=== PATIENT | male | born 1995 | race Asian ===

== ENCOUNTER 2016-08-23 16:04 | Emergency (ER) | payer OTHER ==
[~2016-08-23] VITALS: Ht 170.2 cm; Wt 120.2 kg
[~2016-08-23 16:04] MED LIST: ATEN25TA21 PO; TENORETIC50 MG PO
[2016-08-23 18:52] VITALS: BP 182/80; TEMP 100
== END 2016-08-23 18:50 | disposition home or self-care (01) ==
LOC: ED 16:04
DX: J11.1 Influenza due to unidentified influenza virus with other respiratory manifestations (principal)
CPT/HCPCS: 87081; 87804; 87880; 99283

== ENCOUNTER 2016-09-17 18:53 | Emergency (ER) | payer OTHER ==
[~2016-09-17] VITALS: Ht 170.2 cm; Wt 122.5 kg
[2016-09-17 20:02] VITALS: BP 170/98; TEMP 99.8
== END 2016-09-17 20:03 | disposition home or self-care (01) ==
LOC: ED 18:53
DX: J32.0 Chronic maxillary sinusitis (principal); J32.2 Chronic ethmoidal sinusitis
CPT/HCPCS: 99282

== ENCOUNTER 2016-12-17 00:49 | Emergency (ER) | payer OTHER ==
[~2016-12-17] VITALS: Ht 170.2 cm; Wt 122.5 kg
[2016-12-17 01:56] VITALS: BP 170/88; TEMP 98.4
== END 2016-12-17 02:00 | disposition home or self-care (01) ==
LOC: ED 00:49
DX: J20.9 Acute bronchitis, unspecified (principal); J01.90 Acute sinusitis, unspecified; J30.9 Allergic rhinitis, unspecified
CPT/HCPCS: 96372; 99282; J0696

== ENCOUNTER 2017-01-15 23:46 | Emergency (ER) | payer OTHER ==
[~2017-01-15] VITALS: Ht 170.2 cm; Wt 122.5 kg
[2017-01-16] MEDS ORDERED: ALBU90AE13 INH (00:08)
[2017-01-16 01:29] VITALS: BP 171/91; TEMP 98.7
== END 2017-01-16 01:37 | disposition home or self-care (01) ==
LOC: ED 23:46
DX: J45.909 Unspecified asthma, uncomplicated (principal); R07.89 Other chest pain
CPT/HCPCS: 94664; 94760; 99283

== ENCOUNTER 2017-01-26 11:26 | Emergency (ER) | payer OTHER ==
[~2017-01-26] VITALS: Ht 170.2 cm; Wt 122.5 kg
[~2017-01-26 11:26] MED LIST changes: +ALBU90AE13 INH
[2017-01-26 11:41] VITALS: TEMP 98.6
[2017-01-26 12:54] LABS: PLATELET COUNT 373 K/uL (142-355)
[2017-01-26 12:55] LABS: POTASSIUM 3.7 mmol/L (3.6-5.2); SODIUM 140 mmol/L (136-145)
[2017-01-26 15:13] VITALS: BP 157/96
== END 2017-01-26 15:18 | disposition home or self-care (01) ==
LOC: ED 11:26
PROVIDERS: Emergency Medicine
DX: J18.9 Pneumonia, unspecified organism (principal); I10 Essential (primary) hypertension; R00.0 Tachycardia, unspecified
CPT/HCPCS: 36415; 80053; 80307; 81000; 82550; 84484; 85027; 93005; 99284; G0479

== ENCOUNTER 2017-03-04 10:03 | Emergency (ER) | payer OTHER ==
[~2017-03-04] VITALS: Ht 200.7 cm; Wt 122.5 kg
[2017-03-04] MEDS ORDERED: CLONIDINE0.2 MG/24 (10:25)
[2017-03-04 10:55] LABS: PLATELET COUNT 449 K/uL (142-355)
[2017-03-04 12:26] VITALS: BP 154/88; TEMP 98.8
== END 2017-03-04 12:29 | disposition home or self-care (01) ==
LOC: ED 10:03
DX: J45.909 Unspecified asthma, uncomplicated (principal); E66.09 Other obesity due to excess calories
CPT/HCPCS: 36415; 85027; 85651; 99283

== ENCOUNTER 2017-03-09 01:23 | Inpatient (IN) | payer OTHER ==
[2017-03-09] VITALS (10 sets, daily range): BP systolic 14–180; BP diastolic 82–121; TEMP 97.8–101.8; Ht 170.2 cm; Wt 122.5 kg
[~2017-03-09] VITALS: Ht 170.2 cm; Wt 122.5 kg
[~2017-03-09 01:23] MED LIST changes: +CLONIDINE0.2 MG/24
[2017-03-09 02:20] LABS: PLATELET COUNT 454 K/uL (142-355)
[2017-03-09 02:53] LABS: POTASSIUM 3.1 mmol/L (3.6-5.2); SODIUM 139 mmol/L (136-145)
[2017-03-09 17:02] LABS: PLATELET COUNT 483 K/uL (142-355)
[2017-03-09 17:07] LABS: POTASSIUM 3.3 mmol/L (3.6-5.2); SODIUM 139 mmol/L (136-145)
== END 2017-03-09 19:00 | disposition short-term general hospital (02) | DRG 189 ==
LOC: ED 01:23 → MED/SURG 03:00 → ED 03:11 → MED/SURG 03:50 → ICU 16:45
PROVIDERS: ADMIT Family Medicine
DX: J96.01 Acute respiratory failure with hypoxia (principal); J18.8 Other pneumonia, unspecified organism; J81.1 Chronic pulmonary edema; E87.6 Hypokalemia; J45.998 Other asthma; I16.0 Hypertensive urgency; R00.0 Tachycardia, unspecified; I51.7 Cardiomegaly
CPT/HCPCS: 36415; 36600; 80053; 82550; 82553; 82805; 83605; 83880; 84484; 85027; 85379; 85651; 86703; 87040; 87070; 87205; 93005; 94640; 94664; 94760; 96365; 96366; 96372; 96375; 99284; G0432; J0456; J0696; J1450; J1650; J1885; J1940; J2270; J2405; J2930; J3490

== ENCOUNTER 2017-05-05 23:16 | Emergency (ER) | payer OTHER ==
[~2017-05-05] VITALS: Ht 170.2 cm; Wt 112.0 kg
[2017-05-06 00:17] LABS: PLATELET COUNT 362 K/uL (142-355)
[2017-05-06 00:54] LABS: POTASSIUM 3.6 mmol/L (3.6-5.2); SODIUM 138 mmol/L (136-145)
[2017-05-06 01:36] VITALS: BP 138/91; TEMP 98.6
== END 2017-05-06 01:39 | disposition home or self-care (01) ==
LOC: ED 23:16
DX: I10 Essential (primary) hypertension (principal); I51.7 Cardiomegaly; I50.9 Heart failure, unspecified
CPT/HCPCS: 36415; 74022; 80053; 82150; 83690; 85027; 99283

== ENCOUNTER 2017-05-19 03:53 | Outpatient (CLI) | payer OTHER ==
[2017-05-19] MEDS ORDERED: LISI5TAB10 PO (04:48)
[2017-05-19] MEDS ORDERED: FURO20TA67 PO (04:48)
== END 2017-05-19 03:58 | disposition short-term general hospital (02) ==
LOC: AMB 03:53
DX: R06.09 Other forms of dyspnea (principal)
CPT/HCPCS: A0425; A0429

== ENCOUNTER 2017-05-19 11:31 | Outpatient (CLI) | payer OTHER ==
[~2017-05-19 11:31] MED LIST changes: +FURO20TA67 PO; +LISI5TAB10 PO
== END 2017-05-19 12:01 | disposition short-term general hospital (02) ==
LOC: AMB 11:31
DX: I42.9 Cardiomyopathy, unspecified (principal); I50.9 Heart failure, unspecified; J18.0 Bronchopneumonia, unspecified organism; R68.89 Other general symptoms and signs; E87.3 Alkalosis; J96.91 Respiratory failure, unspecified with hypoxia; R00.0 Tachycardia, unspecified; I45.81 Long QT syndrome
CPT/HCPCS: A0425; A0427

== ENCOUNTER 2017-08-07 10:47 | Outpatient (CLI) | payer OTHER | END 2017-08-07 20:01 | disposition home or self-care (01) | LOC: RAD 10:47 | DX: I50.9 Heart failure, unspecified (principal); I42.8 Other cardiomyopathies; I10 Essential (primary) hypertension ==

== ENCOUNTER 2017-09-10 12:16 | Emergency (ER) | payer OTHER ==
[~2017-09-10] VITALS: Ht 170.2 cm; Wt 109.8 kg
[2017-09-10 13:30] LABS: PLATELET COUNT 432 K/uL (142-355)
[2017-09-10 13:34] LABS: POTASSIUM 3.8 mmol/L (3.6-5.2)
[2017-09-10 14:00] VITALS: TEMP 98
[2017-09-10 15:56] VITALS: BP 133/92
== END 2017-09-10 16:05 | disposition home or self-care (01) ==
LOC: ED 12:16
PROVIDERS: Family Medicine
DX: I10 Essential (primary) hypertension (principal)
CPT/HCPCS: 36415; 80048; 83880; 84484; 85027; 93005; 96374; 96375; 96376; 99284; J1885; J1940; J2405

== ENCOUNTER 2017-10-09 19:18 | Emergency (ER) | payer OTHER ==
[~2017-10-09] VITALS: Ht 170.2 cm; Wt 110.2 kg
[2017-10-09 21:39] LABS: PLATELET COUNT 405 K/uL (142-355)
[2017-10-09 21:41] LABS: POTASSIUM 3.5 mmol/L (3.6-5.2)
[2017-10-09 22:19] VITALS: BP 123/75; TEMP 98.9
== END 2017-10-09 22:19 | disposition home or self-care (01) ==
LOC: ED 19:18
DX: K52.89 Other specified noninfective gastroenteritis and colitis (principal)
CPT/HCPCS: 36415; 74022; 80053; 81000; 85027; 96361; 96365; 96374; 99284; J2405; J7120

== ENCOUNTER 2017-10-11 13:43 | Inpatient (IN) | payer OTHER ==
[2017-10-11] VITALS (8 sets, daily range): BP systolic 123–149; BP diastolic 72–115; TEMP 99.3–99.4; Ht 170.2 cm; Wt 109.4 kg
[~2017-10-11] VITALS: Ht 170.2 cm; Wt 109.4 kg
--- NOTE | 2017-10-11 13:47 | NUR ---
PT TO PCU1 DIRECT ADMIT FROM DR BREWER OFFICE.ASSISTED TO BED. PTON 2LO2 PER NC.
--- NOTE | 2017-10-11 14:10 | NUR ---
LABS DRAWN & IV STARTED 20 G L FA X 1 STICK PER JUNE ALCANTARA RN.
--- NOTE | 2017-10-11 14:30 | NUR ---
EKG DONE PER RT. PT SITTING UP PROPPING OVER BSD RESTING.
--- NOTE | 2017-10-11 14:46 | NUR ---
[facility]A CALLED,STILL WORKING ON ABED,WILL BE ABOUT 2 HRS BEFORE BED AVAILABLE.
[2017-10-11 14:53] LABS: PLATELET COUNT 414 K/uL (142-355)
[2017-10-11 14:59] LABS: POTASSIUM 5.1 mmol/L (3.6-5.2)
--- NOTE | 2017-10-11 15:02 | NUR ---
PT TO XRAY PER WC.
--- NOTE | 2017-10-11 15:18 | NUR ---
LAB IN TO DRAW BLOOD CULTURES. PT'S FAMILY AT BS.
--- NOTE | 2017-10-11 16:15 | NUR ---
RECEIVED CALL FROM [facility] IN [place], [place] WITH ROOM ASSIGNMENT FOR PATIENT AND NUMBER TO CALL REPORT TO.
--- NOTE | 2017-10-11 16:56 | NUR ---
EMS NOTIFIED OF NEED FOR TRANSPORT TO [facility].
--- NOTE | 2017-10-11 16:56 | NUR ---
REPORT CALLED TO ELLIE THIBODEAUX RN U [facility].
--- NOTE | 2017-10-11 17:55 | NUR ---
DR BACA IN TO SEE PT. EMS CALLED,WILL BE 4 HRS BEFORE PT CAN BE TRANSFERRED.
--- NOTE | 2017-10-11 18:41 | NUR ---
PT SITTING UP ON SIDE OF BED TALKING WITH FAMILY.
== END 2017-10-11 19:39 | disposition short-term general hospital (02) | DRG 293 ==
LOC: ICU 13:43
PROVIDERS: ADMIT Family Medicine
DX: I50.9 Heart failure, unspecified (principal); I42.9 Cardiomyopathy, unspecified; R06.09 Other forms of dyspnea; E86.0 Dehydration; R11.2 Nausea with vomiting, unspecified; I10 Essential (primary) hypertension; R05 Cough
CPT/HCPCS: 36415; 36600; 80053; 82550; 82553; 82805; 83605; 83880; 84484; 85027; 85379; 87040; 93005; J1940

== ENCOUNTER 2018-01-27 12:02 | Emergency (ER) | payer OTHER ==
[~2018-01-27] VITALS: Ht 170.2 cm; Wt 108.9 kg
[2018-01-27 12:10] VITALS: BP 151/94; TEMP 98.1
== END 2018-01-27 13:00 | disposition home or self-care (01) ==
LOC: ED 12:02
DX: K04.7 Periapical abscess without sinus (principal); S02.5XXA Fracture of tooth (traumatic), initial encounter for closed fracture
CPT/HCPCS: 99281

== ENCOUNTER 2018-04-03 14:07 | Emergency (ER) | payer OTHER ==
[~2018-04-03] VITALS: Ht 170.2 cm; Wt 108.9 kg
[2018-04-03] MEDS ORDERED: FURO40TA93 PO (15:02)
[2018-04-03] MEDS ORDERED: CARV6.25 PO (15:02)
[2018-04-03 15:41] LABS: PLATELET COUNT 400 K/uL (142-355)
[2018-04-03 16:01] LABS: POTASSIUM 3.8 mmol/L (3.6-5.2)
[2018-04-03 17:00] VITALS: TEMP 98.2
[2018-04-03 18:39] VITALS: BP 126/101
== END 2018-04-03 18:45 | disposition short-term general hospital (02) ==
LOC: ED 14:07
PROVIDERS: Emergency Medicine
DX: J18.9 Pneumonia, unspecified organism (principal); R68.89 Other general symptoms and signs; R00.0 Tachycardia, unspecified
CPT/HCPCS: 36415; 80053; 82550; 82553; 84484; 85027; 93005; 99285

== ENCOUNTER 2018-04-03 18:48 | Outpatient (CLI) | payer OTHER ==
[~2018-04-03 18:48] MED LIST changes: +CARV6.25 PO; +FURO40TA93 PO
== END 2018-04-03 19:59 | disposition short-term general hospital (02) ==
LOC: AMB 18:48
DX: J18.9 Pneumonia, unspecified organism (principal); R68.89 Other general symptoms and signs; R00.0 Tachycardia, unspecified
CPT/HCPCS: A0425; A0429

== ENCOUNTER 2018-04-22 09:19 | Outpatient (CLI) | payer OTHER ==
[2018-04-22] MEDS ORDERED: FURO20TA67 PO (09:48)
[2018-04-22] MEDS ORDERED: CARV25TA PO (09:48)
== END 2018-04-22 09:31 | disposition short-term general hospital (02) ==
LOC: AMB 09:19
DX: R07.89 Other chest pain (principal)
CPT/HCPCS: A0425; A0427

== ENCOUNTER 2018-04-22 09:38 | Emergency (ER) | payer OTHER ==
[~2018-04-22] VITALS: Ht 170.2 cm; Wt 108.9 kg
[2018-04-22] MEDS ORDERED: FURO20TA67 PO (09:48)
[2018-04-22] MEDS ORDERED: CARV25TA PO (09:48)
[2018-04-22 10:01] LABS: PLATELET COUNT 561 K/uL (142-355)
[2018-04-22 10:03] LABS: POTASSIUM 4.2 mmol/L (3.6-5.2)
[2018-04-22 11:30] VITALS: BP 134/88; TEMP 97.5
== END 2018-04-22 11:30 | disposition short-term general hospital (02) ==
LOC: ED 09:38
DX: I21.19 ST elevation (STEMI) myocardial infarction involving other coronary artery of inferior wall (principal)
CPT/HCPCS: 80053; 80307; 81000; 82550; 82553; 84484; 85027; 86318; 93005; 96365; 96375; 99285; J2270; J3490

== ENCOUNTER 2018-04-22 11:43 | Outpatient (CLI) | payer OTHER ==
[~2018-04-22 11:43] MED LIST changes: +CARV25TA PO
== END 2018-04-22 12:09 | disposition short-term general hospital (02) ==
LOC: AMB 11:43
DX: I21.19 ST elevation (STEMI) myocardial infarction involving other coronary artery of inferior wall (principal)
CPT/HCPCS: A0425; A0427

== ENCOUNTER 2018-06-02 14:48 | Emergency (ER) | payer OTHER ==
[~2018-06-02] VITALS: Ht 170.2 cm; Wt 108.9 kg
[2018-06-02] MEDS ORDERED: XARELTO20 MG PO (15:16)
[2018-06-02 16:08] LABS: PLATELET COUNT 298 K/uL (142-355)
[2018-06-02 16:16] LABS: POTASSIUM 3.4 mmol/L (3.6-5.2)
[2018-06-02 20:30] VITALS: BP 142/82; TEMP 98.1
== END 2018-06-02 20:35 | disposition short-term general hospital (02) ==
LOC: ED 14:48
PROVIDERS: Family Medicine
DX: R07.89 Other chest pain (principal); R05 Cough; R68.89 Other general symptoms and signs; R00.0 Tachycardia, unspecified
CPT/HCPCS: 36415; 80053; 81000; 83880; 84484; 85027; 93005; 99285

== ENCOUNTER 2018-06-02 20:44 | Outpatient (CLI) | payer OTHER ==
[~2018-06-02 20:44] MED LIST changes: +XARELTO20 MG PO
== END 2018-06-02 21:58 | disposition short-term general hospital (02) ==
LOC: AMB 20:44
DX: R07.89 Other chest pain (principal); R05 Cough; R68.89 Other general symptoms and signs; R00.0 Tachycardia, unspecified
CPT/HCPCS: A0425; A0427

== ENCOUNTER 2018-06-28 06:14 | Emergency (ER) | payer OTHER ==
[~2018-06-28] VITALS: Ht 170.2 cm; Wt 108.9 kg
[2018-06-28 06:24] VITALS: TEMP 98.1
[2018-06-28 08:10] LABS: PLATELET COUNT 450 K/uL (142-355)
[2018-06-28 08:14] LABS: POTASSIUM 3.1 mmol/L (3.6-5.2)
[2018-06-28 10:25] VITALS: BP 133/84
== END 2018-06-28 10:26 | disposition home or self-care (01) ==
LOC: ED 06:14
PROVIDERS: Internal Medicine
DX: A08.4 Viral intestinal infection, unspecified (principal)
CPT/HCPCS: 36415; 80053; 82150; 83690; 85027; 96374; 96375; 99284; J2405

== ENCOUNTER 2018-06-29 11:16 | Emergency (ER) | payer OTHER ==
[~2018-06-29] VITALS: Ht 170.2 cm; Wt 108.9 kg
[2018-06-29 16:25] VITALS: BP 114/107; TEMP 98.2
== END 2018-06-29 16:25 | disposition home or self-care (01) ==
LOC: ED 11:16
DX: K21.9 Gastro-esophageal reflux disease without esophagitis (principal); R10.13 Epigastric pain
CPT/HCPCS: 96360; 96374; 99284; J2405; Q9963

== ENCOUNTER 2018-07-15 11:01 | Emergency (ER) | payer OTHER ==
[~2018-07-15] VITALS: Ht 170.2 cm; Wt 108.9 kg
[2018-07-15 11:41] LABS: PLATELET COUNT 365 K/uL (142-355)
[2018-07-15 11:45] LABS: POTASSIUM 3.1 mmol/L (3.6-5.2)
[2018-07-15 15:10] VITALS: BP 142/89; TEMP 98
== END 2018-07-15 15:10 | disposition short-term general hospital (02) ==
LOC: ED 11:01
PROVIDERS: Emergency Medicine
DX: R79.89 Other specified abnormal findings of blood chemistry (principal); B96.81 Helicobacter pylori [H. pylori] as the cause of diseases classified elsewhere; R00.0 Tachycardia, unspecified
CPT/HCPCS: 80053; 82150; 82550; 83690; 83880; 84484; 85027; 86318; 93005; 96374; 96375; 99284; J2405; J3490

== ENCOUNTER 2018-07-23 11:59 | Emergency (ER) | payer OTHER ==
[~2018-07-23] VITALS: Ht 170.2 cm; Wt 108.9 kg
[2018-07-23 13:50] LABS: POTASSIUM 3.6 mmol/L (3.6-5.2)
[2018-07-23 14:02] LABS: PLATELET COUNT 555 K/uL (142-355)
[2018-07-23 19:29] VITALS: BP 1140/78; TEMP 98.1
== END 2018-07-23 19:30 | disposition home or self-care (01) ==
LOC: ED 11:59
PROVIDERS: Family Medicine
DX: K29.70 Gastritis, unspecified, without bleeding (principal); R11.0 Nausea
CPT/HCPCS: 36415; 74022; 80053; 81000; 85027; 99283

== ENCOUNTER 2018-08-08 16:40 | Emergency (ER) | payer OTHER ==
[~2018-08-08] VITALS: Ht 170.2 cm; Wt 99.8 kg
[2018-08-08 18:35] LABS: POTASSIUM 3.6 mmol/L (3.6-5.2)
[2018-08-08 19:12] LABS: PLATELET COUNT 348 K/uL (142-355)
[2018-08-08 19:25] VITALS: BP 121/83; TEMP 98
== END 2018-08-08 19:25 | disposition home or self-care (01) ==
LOC: ED 16:40
PROVIDERS: Emergency Medicine
DX: I50.9 Heart failure, unspecified (principal); R79.89 Other specified abnormal findings of blood chemistry; R00.0 Tachycardia, unspecified
CPT/HCPCS: 36415; 80053; 82150; 82550; 83690; 83880; 84484; 85027; 85610; 85730; 93005; 96374; 99284; J1940

== ENCOUNTER 2018-08-26 17:08 | Emergency (ER) | payer OTHER ==
[~2018-08-26] VITALS: Ht 170.2 cm; Wt 89.4 kg
[2018-08-26] MEDS ORDERED: DEXL60CA4 PO (17:44)
[2018-08-26] MEDS ORDERED: CARV6.25 PO (17:45)
[2018-08-26] MEDS ORDERED: ACID REDUCER150 MG PO (17:45)
[2018-08-26 18:25] LABS: PLATELET COUNT 525 K/uL (142-355)
[2018-08-26 18:43] LABS: POTASSIUM 4.4 mmol/L (3.6-5.2)
[2018-08-26 23:37] LABS: PLATELET COUNT 525 K/uL (142-355)
[2018-08-27 00:44] VITALS: BP 112/77; TEMP 97.5
== END 2018-08-27 00:44 ==
LOC: ED 17:08
PROVIDERS: Emergency Medicine
PROC: 0T9B70Z Drainage of Bladder with Drainage Device, Via Natural or Artificial Opening (ICD-10-PCS; principal; 2018-08-26)
PROC: 0BH17EZ Insertion of Endotracheal Airway into Trachea, Via Natural or Artificial Opening (ICD-10-PCS; 2018-08-26)
PROC: 5A1935Z Respiratory Ventilation, Less than 24 Consecutive Hours (ICD-10-PCS; 2018-08-26)
DX: I50.9 Heart failure, unspecified (principal); R00.0 Tachycardia, unspecified
CPT/HCPCS: 31500; 36415; 51702; 80053; 80307; 81000; 82150; 82272; 82550; 83690; 83735; 83880; 84484; 85027; 94002; 96361; 96365; 96374; 96375; 96376; 99285; J0171; J0330; J1200; J1940; J2060; J2250; J2270; J2405; J3490

== ENCOUNTER 2018-08-27 00:48 | Outpatient (CLI) | payer OTHER ==
[~2018-08-27 00:48] MED LIST changes: +ACID REDUCER150 MG PO; +DEXL60CA4 PO
== END 2018-08-27 02:05 | disposition short-term general hospital (02) ==
LOC: AMB 00:48
DX: I50.9 Heart failure, unspecified (principal); R07.89 Other chest pain; R10.9 Unspecified abdominal pain; R06.02 Shortness of breath
CPT/HCPCS: A0425; A0427

== ENCOUNTER 2019-09-24 12:59 | Emergency (ER) | payer OTHER ==
[~2019-09-24] VITALS: Ht 170.2 cm; Wt 85.7 kg
[2019-09-24 13:52] LABS: PLATELET COUNT 333 K/uL (142-355)
[2019-09-24 13:56] LABS: POTASSIUM 3.4 mmol/L (3.6-5.2)
[2019-09-24 14:09] LABS: PARTIAL THROMBOPLASTIN TIME 27.4 SECONDS (24.5-33.6)
[2019-09-24 19:49] VITALS: BP 117/86; TEMP 99
== END 2019-09-24 20:50 | disposition short-term general hospital (02) ==
LOC: ED 12:59
PROVIDERS: Emergency Medicine
DX: I50.9 Heart failure, unspecified (principal); R04.2 Hemoptysis; R79.89 Other specified abnormal findings of blood chemistry; Z03.818 Encounter for observation for suspected exposure to other biological agents ruled out
CPT/HCPCS: 80053; 82550; 82553; 83880; 84484; 85027; 85379; 85610; 85730; 87502; 87635; 87651; 93005; 99284; Q9963; U0002

== ENCOUNTER 2019-09-28 23:47 | Emergency (ER) | payer OTHER ==
[~2019-09-28] VITALS: Ht 170.2 cm; Wt 85.7 kg
[2019-09-29 00:29] LABS: PLATELET COUNT 311 K/uL (142-355)
[2019-09-29 00:51] LABS: PARTIAL THROMBOPLASTIN TIME 27.4 SECONDS (24.5-33.6)
[2019-09-29 00:55] LABS: POTASSIUM 4.2 mmol/L (3.6-5.2)
[2019-09-29 03:00] VITALS: BP 97/68; TEMP 98.7
== END 2019-09-29 03:00 | disposition home or self-care (01) ==
LOC: ED 23:47
PROVIDERS: Hospitalist
DX: J18.9 Pneumonia, unspecified organism (principal); R09.1 Pleurisy; I50.9 Heart failure, unspecified
CPT/HCPCS: 36415; 80053; 82550; 83880; 84484; 85007; 85027; 85379; 85610; 85730; 93005; 96365; 96375; 99284; J1885; J1956; J2405

== ENCOUNTER 2019-10-10 12:32 | Outpatient (CLI) | payer OTHER ==
[2019-10-10 13:33] LABS: POTASSIUM 3.5 mmol/L (3.6-5.2)
[2019-10-11] MEDS ORDERED: [UNRECOGNIZED DRUG - CODE] INH (20:55)
[2019-10-11] MEDS ORDERED: COZAAR25 MG PO (20:56)
[2019-10-11] MEDS ORDERED: SPIRONOLACT25 MG PO (20:56)
== END 2019-10-10 19:02 | disposition home or self-care (01) ==
LOC: RAD 12:32
PROVIDERS: Nurse Practitioner Family
DX: R04.2 Hemoptysis (principal); R10.31 Right lower quadrant pain; I50.9 Heart failure, unspecified
CPT/HCPCS: 36415; 80053; 83690; 83880; 85379

== ENCOUNTER 2019-10-11 20:17 | Emergency (ER) | payer OTHER ==
[~2019-10-11] VITALS: Ht 170.2 cm; Wt 85.3 kg
[2019-10-11] MEDS ORDERED: [UNRECOGNIZED DRUG - CODE] INH (20:55)
[2019-10-11] MEDS ORDERED: COZAAR25 MG PO (20:56)
[2019-10-11] MEDS ORDERED: SPIRONOLACT25 MG PO (20:56)
[2019-10-11 21:05] LABS: PLATELET COUNT 285 K/uL (142-355)
[2019-10-11 21:11] LABS: POTASSIUM 5.4 mmol/L (3.6-5.2)
[2019-10-12 00:39] VITALS: BP 107/65; TEMP 99.6
== END 2019-10-12 00:39 | disposition short-term general hospital (02) ==
LOC: ED 20:19
DX: R06.09 Other forms of dyspnea (principal); J18.9 Pneumonia, unspecified organism; I50.9 Heart failure, unspecified; Z79.2 Long term (current) use of antibiotics
CPT/HCPCS: 36415; 36600; 80053; 82805; 83605; 83880; 84484; 85027; 85379; 87040; 93005; 94664; 96365; 96375; 99284; J2405; J2543; J2930

== ENCOUNTER 2019-10-21 17:21 | Outpatient (CLI) | payer OTHER ==
[~2019-10-21 17:21] MED LIST changes: +COZAAR25 MG PO; +SPIRONOLACT25 MG PO; +[UNRECOGNIZED DRUG - CODE] INH
== END 2019-10-21 21:51 | disposition home or self-care (01) ==
LOC: LAB 17:21
DX: I42.9 Cardiomyopathy, unspecified (principal)
CPT/HCPCS: 83880

== ENCOUNTER 2019-10-24 09:55 | Outpatient (CLI) | payer OTHER | END 2019-10-24 19:19 | disposition home or self-care (01) | LOC: RAD 09:55 | DX: J18.9 Pneumonia, unspecified organism (principal) ==

== ENCOUNTER 2020-05-26 15:35 | Emergency (ER) | payer OTHER ==
[~2020-05-26] VITALS: Ht 170.2 cm; Wt 90.7 kg
[~2020-05-26 15:35] MED LIST changes: +ACID REDUCER20 MG PO; +ALEN70TA19 PO; +AMLO2.5T PO; +CELLCEPT500 MG PO; +GABA100C2 PO; +MAGNESIUM400 M1 PO; +POT CL MICRO20 MEQ PO; +PRAVACHOL20 MG PO; +TACROLIMUS1 MG PO; +TORS20TA2 PO; +VALACYCLOVIR HYD1 GM PO; +VIT C/ACEROL500 MG PO
[2020-05-26 15:45] VITALS: TEMP 98.5
[2020-05-26 16:32] LABS: PLATELET COUNT 238 K/uL (142-355)
[2020-05-26 16:45] LABS: PARTIAL THROMBOPLASTIN TIME 24.3 SECONDS (24.5-33.6)
[2020-05-26 17:11] LABS: POTASSIUM 5.1 mmol/L (3.6-5.2)
[2020-05-27 09:25] LABS: PLATELET COUNT 211 K/uL (142-355)
[2020-05-27 09:36] LABS: POTASSIUM 3.8 mmol/L (3.6-5.2)
[2020-05-27 13:49] VITALS: BP 143/92
== END 2020-05-27 18:25 | disposition short-term general hospital (02) ==
LOC: ED 15:35
PROVIDERS: Hospitalist
DX: E72.51 Non-ketotic hyperglycinemia (principal); E87.0 Hyperosmolality and hypernatremia; Z94.1 Heart transplant status; Z03.818 Encounter for observation for suspected exposure to other biological agents ruled out
CPT/HCPCS: 36415; 36600; 80053; 80320; 81000; 81002; 82150; 82550; 82805; 82947; 82962; 83690; 83880; 84484; 85027; 85610; 85730; 87040; 87635; 93005; 96365; 96366; 96375; 99285; J0696; J1815; J1885; J2270; J2405; J2765; J3490; U0003

== ENCOUNTER 2021-10-22 13:27 | Emergency (ER) | payer OTHER ==
[~2021-10-22] VITALS: Ht 170.2 cm; Wt 90.7 kg
[2021-10-22 14:27] LABS: PLATELET COUNT 287 K/uL (142-355)
[2021-10-22 15:19] LABS: POTASSIUM 3.4 mmol/L (3.6-5.2)
[2021-10-22 15:27] LABS: PARTIAL THROMBOPLASTIN TIME 26.1 SECONDS (24.5-33.6)
[2021-10-22 21:45] VITALS: BP 134/78; TEMP 99.1
== END 2021-10-22 22:01 | disposition short-term general hospital (02) ==
LOC: ED 13:27
PROVIDERS: Family Medicine
DX: R00.0 Tachycardia, unspecified (principal); R07.89 Other chest pain; I50.9 Heart failure, unspecified; Z11.52 Encounter for screening for COVID-19; Z94.1 Heart transplant status
CPT/HCPCS: 36415; 80053; 81000; 82150; 82550; 83690; 83880; 84484; 85027; 85379; 85610; 85730; 87635; 93005; 96360; 99285; U0003

== ENCOUNTER 2022-03-24 20:08 | Emergency (ER) | payer OTHER ==
[~2022-03-24] VITALS: Ht 170.2 cm; Wt 98.4 kg
[2022-03-24 20:15] VITALS: BP 125/83; TEMP 97.9
== END 2022-03-24 20:55 | disposition home or self-care (01) ==
LOC: ED 20:08
DX: B37.0 Candidal stomatitis (principal)
CPT/HCPCS: 99282

== ENCOUNTER 2022-07-25 23:12 | Emergency (ER) | payer OTHER | END 2022-07-25 23:50 | disposition home or self-care (01) | LOC: ED 23:12 | DX: Z53.21 Procedure and treatment not carried out due to patient leaving prior to being seen by health care provider (principal) | CPT/HCPCS: 99281 ==

== ENCOUNTER 2022-07-31 00:55 | Emergency (ER) | payer OTHER ==
[~2022-07-31] VITALS: Ht 170.2 cm; Wt 98.9 kg
[2022-07-31 02:05] VITALS: BP 133/88; TEMP 98.7
== END 2022-07-31 02:05 | disposition home or self-care (01) ==
LOC: ED 00:55
PROC: 0C9W0Z0 Drainage of Upper Tooth, Open Approach, Single (ICD-10-PCS; principal; 2022-07-31)
DX: K04.7 Periapical abscess without sinus (principal); L03.211 Cellulitis of face; J32.0 Chronic maxillary sinusitis; F17.210 Nicotine dependence, cigarettes, uncomplicated
CPT/HCPCS: 87070; 87205; 99283

== ENCOUNTER 2023-01-31 16:54 | Emergency (ER) | payer OTHER ==
[~2023-01-31] VITALS: Ht 170.2 cm; Wt 99.8 kg
[2023-01-31 17:05] VITALS: BP 157/108; TEMP 98.2
== END 2023-01-31 18:30 | disposition home or self-care (01) ==
LOC: ED 16:54
DX: Z53.21 Procedure and treatment not carried out due to patient leaving prior to being seen by health care provider (principal)
CPT/HCPCS: 99281